=== PATIENT | male | born 1995 | race Caucasian/White ===

== ENCOUNTER 2017-05-25 00:15 | Emergency (ER) | payer SELFPAY ==
[~2017-05-25] VITALS: Ht 182.9 cm; Wt 74.8 kg
[2017-05-25] MEDS ORDERED: IBUPROFEN 400 MG TABLET ONE (00:59)
[2017-05-25] MEDS ORDERED: IBUPROFEN 400 MG TABLET PO ONE (01:00)
[2017-05-25 01:05] VITALS: BP 141/77
== END 2017-05-25 01:06 | disposition home or self-care (01) ==
LOC: ER 00:21
DX: S63.501A Unspecified sprain of right wrist, initial encounter (principal); W18.39XA Other fall on same level, initial encounter; Y93.51 Activity, roller skating (inline) and skateboarding; Y92.89 Other specified places as the place of occurrence of the external cause; Y99.8 Other external cause status
CPT/HCPCS: 29125; 73110; 99284; A4606; Z7610